=== PATIENT | female | born 1975 | race American Indian/Alaskan Native ===

== ENCOUNTER 2018-07-04 12:04 | Emergency (ER) | payer SELFPAY ==
[2018-07-04] MEDS ORDERED: TORADOL ONE (12:31)
[2018-07-04] MEDS ORDERED: NACL 0.9% 1000 ML 1,000 ML IV ONE (13:46)
[2018-07-04] MEDS ORDERED: ZOFRAN IV ONE (13:46)
[2018-07-04] MEDS ORDERED: DILAUDID IV ONE (13:46)
[2018-07-04 14:09] LABS: Basophils % (Auto) 0.3 % (0.0-1.8); Eosinophils # (Auto) 0.1 K/mm3 (0.0-0.4); Eosinophils % (Auto) 0.6 % (0.0-4.3); Hematocrit 43.9 % (30.3-42.9); Hemoglobin 15.1 gm/dl (10.1-14.3); Lymphocytes # (Auto) 1.6 K/mm3 (1.2-5.4); Lymphocytes % (Auto) 16.1 % (13.4-35.0); Mean Corpuscular HGB Conc 34 % (30-34); Mean Corpuscular Hemoglobin 33 pg (28-32); Mean Corpuscular Volume 95 fl (79-97); Monocytes # (Auto) 0.6 K/mm3 (0.0-0.8); Monocytes % (Auto) 6.6 % (0.0-7.3); Platelet Count 291 K/mm3 (140-440); Red Blood Count 4.61 M/mm3 (3.65-5.03); Red Cell Distribution Width 12.5 % (13.2-15.2)
[2018-07-04 14:23] LABS: Bilirubin,Urine NEG (Negative); Blood,Urine LG (Negative); Color,Urine Yellow (Yellow); Mucus,Urine 1+ /HPF; RBC,Urine > 182.0 /HPF (0.0-6.0); Urobilinogen,Urine < 2.0 mg/dL (<2.0)
[2018-07-04 14:26] LABS: BUN/Creatinine Ratio 20; Blood Urea Nitrogen 12 mg/dL (7-17); Calcium 9.4 mg/dL (8.4-10.2); Hemolysis Index 14
--- NOTE | 2018-07-04 14:30 | Cat Scan Report ---
CT ABDOMEN PELVIS WITHOUT CONTRAST: HISTORY: Right flank pain. COMPARISON: none. TECHNIQUE: Helical CT in 1.25mm intervals without IV contrast. Sagittal and coronal reconstructions. FINDINGS: Lung bases: Normal. Liver: Normal. Biliary system: Normal. Pancreas: Normal. Spleen: Normal. Kidneys/ureters/bladder: The kidneys are normal size, contour and position. The renal pyramids are hyperdense consistent with nephrocalcinosis. No venkatesh renal or ureteral stones are identified. No hydronephrosis. The bladder is partially empty but unremarkable. Adrenal glands: Normal. Aorta: Normal. Intestines: Normal. Appendix: Not confidently identified. Pelvic viscera: Hysterectomy changes are suspected. I believe I see the ovaries which are unremarkable. Ascites: None. Adenopathy: None. Musculoskeletal: Normal. IMPRESSION: No acute process is identified. Nephrocalcinosis of both kidneys.
--- NOTE | 2018-07-04 15:25 | Emergency Department Report ---
ED Abdominal Pain HPI - General Chief Complaint: Urogenital-Female Stated Complaint: KIDNEY STONES/BLOOD IN URINE Time Seen by Provider: 07/04/18 13:43 Source: patient Mode of arrival: Ambulatory Limitations: No Limitations - History of Present Illness Initial Comments: Patient is a 42-year-old female who is presenting with right flank pain. Patient states pain started earlier today. Patient's had a pressure sensation that she needs to go to the bathroom as well as some dysuria. Patient states his nausea with no vomiting. Patient denies any fevers or chills diarrhea at this time. Patient states pain as a 10 out of 10. Patient has had kidney stones in the past. Severity scale (0 -10): 10 - Related Data Previous Rx's Medication Instructions Recorded Last Taken Type Ciprofloxacin HCl [Cipro] 500 mg PO BID #14 tablet 07/04/18 Unknown Rx Ibuprofen [Motrin] 800 mg PO Q8HR PRN #20 tablet 07/04/18 Unknown Rx Ondansetron [Zofran Odt] 4 mg PO Q8HR PRN #10 tab.rapdis 07/04/18 Unknown Rx Tamsulosin HCl [Flomax] 0.4 mg PO QHS #7 cap.er.24h 07/04/18 Unknown Rx oxyCODONE /ACETAMINOPHEN [Percocet 1 tab PO Q6HR PRN #15 tablet 07/04/18 Unknown Rx 5/325] Allergies Allergy/AdvReac Type Severity Reaction Status Date / Time tramadol AdvReac Shortness Verified 07/04/18 12:23 of Breath ED Review of Systems ROS: Stated complaint: KIDNEY STONES/BLOOD IN URINE Other details as noted in HPI Comment: All other systems reviewed and negative ED Past Medical Hx - Past Medical History Previous Medical History?: No - Surgical History Additional Surgical History: HYSTERRECTOMY 2011. RIGHT OVERY REMOVED 2014 - Social History Smoking Status: Never Smoker Substance Use Type: None - Medications Home Medications: Home Medications Medication Instructions Recorded Confirmed Last Taken Type Ciprofloxacin HCl [Cipro] 500 mg PO BID #14 tablet 07/04/18 Unknown Rx Ibuprofen [Motrin] 800 mg PO Q8HR PRN #20 tablet 07/04/18 Unknown Rx Ondansetron [Zofran Odt] 4 mg PO Q8HR PRN #10 tab.rapdis 07/04/18 Unknown Rx Tamsulosin HCl [Flomax] 0.4 mg PO QHS #7 cap.er.24h 07/04/18 Unknown Rx oxyCODONE /ACETAMINOPHEN [Percocet 1 tab PO Q6HR PRN #15 tablet 07/04/18 Unknown Rx 5/325] ED Physical Exam - General Limitations: No Limitations General appearance: alert, in distress - Head Head exam: Present: atraumatic, normocephalic - Eye Eye exam: Present: normal appearance - ENT ENT exam: Present: mucous membranes moist - Neck Neck exam: Present: normal inspection - Respiratory Respiratory exam: Present: normal lung sounds bilaterally. Absent: respiratory distress, wheezes, rales, rhonchi - Cardiovascular Cardiovascular Exam: Present: regular rate, normal rhythm. Absent: systolic murmur, diastolic murmur, rubs, gallop - GI/Abdominal GI/Abdominal exam: Present: soft, normal bowel sounds. Absent: distended, guarding, rebound, rigid - Extremities Exam Extremities exam: Present: normal inspection - Back Exam Back exam: Present: normal inspection, CVA tenderness (R) - Neurological Exam Neurological exam: Present: alert, oriented X3 - Psychiatric Psychiatric exam: Present: normal affect, normal mood - Skin Skin exam: Present: warm, dry, intact, normal color. Absent: rash ED Course Vital Signs 07/04/18 12:21 Temperature 98.5 F Pulse Rate 96 H Respiratory 20 Rate Blood Pressure 129/81 O2 Sat by Pulse 98 Oximetry ED Medical Decision Making - Lab Data Result diagrams: 07/04/18 13:54 07/04/18 13:54 Lab Results 07/04/18 07/04/18 07/04/18 Range/Units 13:54 13:54 Unknown WBC 9.7 (4.5-11.0) K/mm3 RBC 4.61 (3.65-5.03) M/mm3 Hgb 15.1 H (10.1-14.3) gm/dl Hct 43.9 H (30.3-42.9) % MCV 95 (79-97) fl MCH 33 H (28-32) pg MCHC 34 (30-34) % RDW 12.5 L (13.2-15.2) % Plt Count 291 (140-440) K/mm3 Lymph % (Auto) 16.1 (13.4-35.0) % [place] % (Auto) 6.6 (0.0-7.3) % Eos % (Auto) 0.6 (0.0-4.3) % Baso % (Auto) 0.3 (0.0-1.8) % Lymph # 1.6 (1.2-5.4) K/mm3 Bracken # 0.6 (0.0-0.8) K/mm3 Eos # 0.1 (0.0-0.4) K/mm3 Baso # 0.0 (0.0-0.1) K/mm3 Seg Neutrophils % 76.4 H (40.0-70.0) % Seg Neutrophils # 7.4 (1.8-7.7) K/mm3 Sodium 138 (137-145) mmol/L Potassium 4.8 (3.6-5.0) mmol/L Chloride 102.5 (98-107) mmol/L Carbon Dioxide 26 (22-30) mmol/L Anion Gap 14 mmol/L BUN 12 (7-17) mg/dL Creatinine 0.6 L (0.7-1.2) mg/dL Estimated GFR > 60 ml/min BUN/Creatinine Ratio 20 % Glucose 86 (65-100) mg/dL Calcium 9.4 (8.4-10.2) mg/dL Urine Color Yellow (Yellow) Urine Turbidity Clear (Clear) Urine pH 6.0 (5.0-7.0) Ur Specific [place] 1.026 (1.003-1.030) Urine Protein 30 mg/dl (Negative) mg/dL Urine Glucose (UA) Neg (Negative) mg/dL Urine Ketones Neg (Negative) mg/dL Urine Blood Lg (Negative) Urine Nitrite Neg (Negative) Urine Bilirubin Neg (Negative) Urine Urobilinogen < 2.0 (<2.0) mg/dL Ur Leukocyte Esterase Neg (Negative) Urine WBC (Auto) 55.0 H (0.0-6.0) /HPF Urine RBC (Auto) > 182.0 (0.0-6.0) /HPF U Epithel Cells (Auto) 4.0 (0-13.0) /HPF Urine Mucus 1+ /HPF - Radiology Data Patient: JUAN PABLO BRAMBILA MR#: [id number] : 1975 Acct:[id number] Age/Sex: 42 / F ADM Date: 07/04/18 Loc: ED Attending Dr: Ordering Physician: DAVE TILLMAN MD Date of Service: 07/04/18 Procedure(s): CT abdomen pelvis wo con Accession Number(s): [id number] cc: DAVE TILLMAN MD CT ABDOMEN PELVIS WITHOUT CONTRAST: HISTORY: Right flank pain. COMPARISON: none. TECHNIQUE: Helical CT in 1.25mm intervals without IV contrast. Sagittal and coronal reconstructions. FINDINGS: Lung bases: Normal. Liver: Normal. Biliary system: Normal. Pancreas: Normal. Spleen: Normal. Kidneys/ureters/bladder: The kidneys are normal size, contour and position. The renal pyramids are hyperdense consistent with nephrocalcinosis. No venkatesh renal or ureteral stones are identified. No hydronephrosis. The bladder is partially empty but unremarkable. Adrenal glands: Normal. Aorta: Normal. Intestines: Normal. Appendix: Not confidently identified. Pelvic viscera: Hysterectomy changes are suspected. I believe I see the ovaries which are unremarkable. Ascites: None. Adenopathy: None. Musculoskeletal: Normal. IMPRESSION: No acute process is identified. Nephrocalcinosis of both kidneys. Transcribed By: TTR Dictated By: DOMINIQUE GRANADOS JR, MD Electronically Authenticated By: DOMINIQUE GRANADOS JR, MD Signed Date/Time: 07/04/18 1424 - Medical Decision Making Patient's pain is slightly improved here in the emergency department. Patient will be placed on antibiotics for her urinary tract infection. Patient most likely did pass a small kidney stone but is not having an obstructive uropathy at this time Critical care attestation.: If time is entered above; I have spent that time in minutes in the direct care of this critically ill patient, excluding procedure time. ED Disposition Clinical Impression: Kidney stone Hematuria Qualifiers: Hematuria type: unspecified type Qualified Code(s): R31.9 - Hematuria, unspecified Acute cystitis Qualifiers: Hematuria presence: with hematuria Qualified Code(s): N30.01 - Acute cystitis with hematuria Disposition: TO HOME OR SELFCARE Is pt being admited?: No Does the pt Need Aspirin: No Condition: Stable Instructions: Urinary Tract Infection in Women (ED), Kidney Stones (ED) Referrals: RODOLFO ATKINSON MD [Staff Physician] - 3-5 Days
[2018-07-04 15:53] VITALS: BP 124/80
== END 2018-07-04 15:52 | disposition home or self-care (01) ==
LOC: ED 12:04
DX: N30.01 Acute cystitis with hematuria (principal); N20.0 Calculus of kidney; Z88.6 Allergy status to analgesic agent
CPT/HCPCS: 36415; 74176; 80048; 81001; 85025; 96374; 96375; 99284; J1170; J1885; J2405; J7030

== ENCOUNTER 2019-02-17 10:58 | Emergency (ER) | payer SELFPAY ==
--- NOTE | 2019-02-17 11:27 | Emergency Department Report ---
Chief Complaint: Abdominal Pain Stated Complaint: KIDNEY STONE/BLOOD IN URINE Time Seen by Provider: 02/17/19 11:09 - HPI History of Present Illness: This is a 43 y.o. female that presents with suspected kidney stones. - ROS Review of Systems: right flank pain, dysuria, pelvic pain, hematuria, & nausea - Exam Vital Signs: Vital Signs 02/17/19 11:05 Temperature 97.8 F Pulse Rate 113 H Respiratory 20 Rate Blood Pressure 144/106 O2 Sat by Pulse 98 Oximetry MSE screening note: Focused history and physical exam performed. Due to findings the following was ordered: labs and CT of abdomen and pelvis ED Disposition for MSE Condition: Stable Instructions: Abdominal Pain (ED)
--- NOTE | 2019-02-17 11:44 | Emergency Department Report ---
ED General Adult HPI - General Chief complaint: Abdominal Pain Stated complaint: KIDNEY STONE/BLOOD IN URINE Time Seen by Provider: 02/17/19 11:09 Source: patient, RN notes reviewed, old records reviewed Mode of arrival: Ambulatory Limitations: No Limitations - History of Present Illness Initial comments: This is a 43-year-old female. The patient is not known to this provider previously. The patient has a history of possible kidney stones. The patient has not had this diagnosis formally established in this hospital. In 2018, she presents flank pain and hematuria, and was treated presumptively for symptomatic kidney stone, although noncontrast CT scan of the abdomen and pelvis demonstrated no stones within the collecting system. Today, the patient presents to the emergency room with a complaint of nontraumatic right CVA back pain, sharp, aching, associated with hematuria, and intermittent dysuria. The symptoms are intermittent since yesterday, and associated with suprapubic discomfort, with mild nausea, no vomiting, no fevers or chills, no hematemesis or bright red blood per rectum. Patient reports no recent travel to the [place], or to [place], denies exposure to blue aniline dyes, but does admit intermittent tobacco consumption. Has not followed up with a urologist. In the emergency room, patient treated with hydromorphone, ketorolac, IV fluids, which improved her symptoms. -: Gradual, hour(s) Location: back Radiation: periumbillical Severity scale (0 -10): 10 Consistency: intermittent Improves with: medication, rest Worsens with: movement - Related Data Previous Rx's Medication Instructions Recorded Last Taken Type Ciprofloxacin HCl [Cipro] 500 mg PO BID #14 tablet 07/04/18 Unknown Rx Ibuprofen [Motrin] 800 mg PO Q8HR PRN #20 tablet 07/04/18 Unknown Rx Ondansetron [Zofran Odt] 4 mg PO Q8HR PRN #10 tab.rapdis 07/04/18 Unknown Rx Tamsulosin HCl [Flomax] 0.4 mg PO QHS #7 cap.er.24h 07/04/18 Unknown Rx oxyCODONE /ACETAMINOPHEN [Percocet 1 tab PO Q6HR PRN #15 tablet 07/04/18 Unknown Rx 5/325] Acetaminophen [Tylenol Arthritis] 650 mg PO Q6HR PRN #30 tablet.er 02/17/19 Unknown Rx Ketorolac [Toradol] 10 mg PO Q6H PRN #20 tablet 02/17/19 Unknown Rx Metoclopramide [Reglan] 10 mg PO QID PRN #30 tablet 02/17/19 Unknown Rx levoFLOXacin [Levaquin] 750 mg PO QDAY #10 tablet 02/17/19 Unknown Rx oxyCODONE [Roxicodone] 5 mg PO Q6HR PRN #15 tablet 02/17/19 Unknown Rx Allergies Allergy/AdvReac Type Severity Reaction Status Date / Time tramadol AdvReac Shortness Verified 07/04/18 12:23 of Breath ED Review of Systems ROS: Stated complaint: KIDNEY STONE/BLOOD IN URINE Other details as noted in HPI Constitutional: denies: fever, malaise Eyes: denies: vision change ENT: denies: epistaxis Respiratory: denies: cough Cardiovascular: denies: chest pain Genitourinary: dysuria, hematuria Musculoskeletal: back pain Skin: denies: lesions Neurological: denies: weakness Psychiatric: anxiety ED Past Medical Hx - Past Medical History Previous Medical History?: No - Surgical History Past Surgical History?: Yes Additional Surgical History: HYSTERRECTOMY 2011. RIGHT OVERY REMOVED 2014 - Social History Smoking Status: Never Smoker - Medications Home Medications: Home Medications Medication Instructions Recorded Confirmed Last Taken Type Ciprofloxacin HCl [Cipro] 500 mg PO BID #14 tablet 07/04/18 Unknown Rx Ibuprofen [Motrin] 800 mg PO Q8HR PRN #20 tablet 07/04/18 Unknown Rx Ondansetron [Zofran Odt] 4 mg PO Q8HR PRN #10 tab.rapdis 07/04/18 Unknown Rx Tamsulosin HCl [Flomax] 0.4 mg PO QHS #7 cap.er.24h 07/04/18 Unknown Rx oxyCODONE /ACETAMINOPHEN [Percocet 1 tab PO Q6HR PRN #15 tablet 07/04/18 Unknown Rx 5/325] Acetaminophen [Tylenol Arthritis] 650 mg PO Q6HR PRN #30 tablet.er 02/17/19 Unknown Rx Ketorolac [Toradol] 10 mg PO Q6H PRN #20 tablet 02/17/19 Unknown Rx Metoclopramide [Reglan] 10 mg PO QID PRN #30 tablet 02/17/19 Unknown Rx levoFLOXacin [Levaquin] 750 mg PO QDAY #10 tablet 02/17/19 Unknown Rx oxyCODONE [Roxicodone] 5 mg PO Q6HR PRN #15 tablet 02/17/19 Unknown Rx ED Physical Exam - General Limitations: No Limitations General appearance: alert, anxious, in distress - Head Head exam: Present: atraumatic, normocephalic - Eye Eye exam: Present: normal appearance, EOMI. Absent: nystagmus - ENT ENT exam: Present: normal exam, normal orophraynx, mucous membranes moist, normal external ear exam - Neck Neck exam: Present: normal inspection, full ROM. Absent: tenderness, meningismus - Respiratory Respiratory exam: Present: normal lung sounds bilaterally. Absent: respiratory distress - Cardiovascular Cardiovascular Exam: Present: normal rhythm, tachycardia, normal heart sounds. Absent: systolic murmur, diastolic murmur, rubs, gallop - GI/Abdominal GI/Abdominal exam: Present: soft, tenderness, other (there is suprapubic tenderness. There is no right lower quadrant tenderness. There is no rebound, guarding or peritoneal signs.). Absent: distended, guarding, rebound, rigid, pulsatile mass - Extremities Exam Extremities exam: Present: normal inspection, full ROM, other (2+ pulses noted in the bilateral upper, lower extremities. Compartments soft. No long bony tenderness. The pelvis is stable.). Absent: pedal edema, joint swelling, calf tenderness - Back Exam Back exam: Present: normal inspection, full ROM, tenderness, CVA tenderness (R). Absent: CVA tenderness (L), muscle spasm, paraspinal tenderness, vertebral tenderness - Neurological Exam Neurological exam: Present: alert, oriented X3, CN II-XII intact, normal gait, other (Extraocular movements intact. Tongue midline. No facial droop. Facial sensation intact to light touch in the V1, V2, V3 distribution bilaterally. 5 and 5 strength in 4 extremities.. Sensation is intact to light touch in 4 extremities.). Absent: motor sensory deficit - Psychiatric Psychiatric exam: Present: anxious - Skin Skin exam: Present: warm, dry, intact, normal color. 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 Reevaluation #3: 02/17/19 14:50 Tachycardia resolved ED Medical Decision Making - Lab Data Result diagrams: 02/17/19 11:46 02/17/19 11:46 Vital Signs 02/17/19 11:05 Temperature 97.8 F Pulse Rate 113 H Respiratory 20 Rate Blood Pressure 144/106 O2 Sat by Pulse 98 Oximetry Lab Results 02/17/19 Range/Units 11:40 Urine Color Red (Yellow) Urine Turbidity Cloudy (Clear) Urine pH 5.0 (5.0-7.0) Ur Specific [place] 1.031 H (1.003-1.030) Urine Protein 100 mg/dl (Negative) mg/dL Urine Glucose (UA) Neg (Negative) mg/dL Urine Ketones Neg (Negative) mg/dL Urine Blood Lg (Negative) Urine Nitrite Neg (Negative) Urine Bilirubin Neg (Negative) Urine Urobilinogen < 2.0 (<2.0) mg/dL Ur Leukocyte Esterase Neg (Negative) Urine WBC (Auto) 1.0 (0.0-6.0) /HPF Urine RBC (Auto) > 182.0 (0.0-6.0) /HPF U Epithel Cells (Auto) 12.0 (0-13.0) /HPF Urine Bacteria (Auto) 2+ (Negative) /HPF Urine Mucus 2+ /HPF Urine HCG, Qual Negative (Negative) - Radiology Data Radiology results: report reviewed, image reviewed Referring Physician: ERNESTINE HARRISON Patient Name: JUAN PABLO BRAMBILA Date of : 1975 Sex: Female Report Date: 2019-02-17 Report Status: Finalized [address] [address] Cat Scan Report Signed Patient: JUAN PABLO BRAMBILA MR#: [id number] : 1975 Acct:[id number] Age/Sex: 43 / F ADM Date: 02/17/19 Loc: ED Attending Dr: Ordering Physician: ERNESTINE HARRISON MD Date of Service: 02/17/19 Procedure(s): CT abdomen pelvis wo con Accession Number(s): [id number] cc: ERNESTINE HARRISON MD CT ABDOMEN PELVIS WITHOUT CONTRAST: HISTORY: Right flank pain. COMPARISON: 07/04/13. TECHNIQUE: Helical CT in 1.25mm intervals without IV contrast. Sagittal and coronal reconstructions. FINDINGS: Lung bases: Normal. Liver: Normal. Bi liary system: Normal. Pancreas: Normal. Spleen: Normal. Kidneys/ureters/bladder: Mild nephrocalcinosis in both kidneys is again identified. No evidence for nephrolithiasis, ureteral stones or hydronephrosis. The bladder is partially empty but unremarkable. Adrenal glands: Normal. Aorta: Normal. Intestines: Normal. Appendix: Appendectomy changes are suspected. Pelvic viscera: Hysterectomy changes. Ascites: None. Adenopathy: None. Musculoskeletal: Normal. IMPRESSION: No acute process is identified in the abdomen or pelvis. Mild nephrocalcinosis in both kidneys. No change since 07/04/18. Transcribed By: TTR Dictated By: DOMINIQUE GRANADOS JR, MD Electronically Authenticated By: DOMINIQUE GRANADOS JR, MD Signed Date/Time: 02/17/19 1212 DD/ 1209 TD/TT: 02/17/[address] Print Report Referring Physician: DAVE TILLMAN Patient Name: JUAN PABLO BRAMBILA Date of : 1975 Sex: Female Report Date: 2018-07-04 Report Status: Finalized Findings [address] [place] [address] Cat Scan Report Signed Patient: JUAN PABLO BRAMBILA MR#: [id number] : 1975 Acct:[id number] Age/Sex: 42 / F ADM Date: 07/04/18 Loc: ED Attending Dr: Ordering Physician: DAVE TILLMAN MD Date of Service: 07/04/18 Procedure(s): CT abdomen pelvis wo con Accession Number(s): [id number] cc: DAVE TILLMAN MD CT ABDOMEN PELVIS WITHOUT CONTRAST: HISTORY: Right flank pain. COMPARISON: none. TECHNIQUE: Helical CT in 1.25mm intervals without IV contrast. Sagittal and coronal reconstructions. FINDINGS: Lung bases: Normal. Liver: Normal. Biliary system: Normal. Pancreas: Normal. Spleen: Normal. Kidneys/ureters/bladder: The kidneys are normal size, contour and position. The renal pyramids are hyperdense consistent with nephrocalcinosis. No venkatesh renal or ureteral stones are identified. No hydronephrosis. The bladder is partially empty but unremarkable. Adrenal glands: Normal. Aorta: Normal. Intestines: Normal. Appendix: Not confidently identified. Pelvic viscera: Hysterectomy changes are suspected. I believe I see the ovaries which are unremarkable. Ascites: None. Adenopathy: No ne. Musculoskeletal: Normal. IMPRESSION: No acute process is identified. Nephrocalcinosis of both kidneys. Transcribed By: TTR Dictated By: DOMINIQUE GRANADOS JR, MD Electronically Authenticated By: DOMINIQUE GRANADOS JR, MD Signed Date/Time: 07/04/18 1424 - Medical Decision Making Differential diagnosis, including but not limited to: Renal colic, pyelo nephritis, genitourinary malignancy, Assessment and plan: 43-year-old female with recurrent flank pain, hematuria, and dysuria. Tachycardia resolved. Tolerating oral feeds. Urinalysis is reviewed and appreciated, given 2+ bacteriuria, right flank pain, history of dysuria, we will treat empirically for pyelonephritis. Patient suitable for a trial of oral outpatient antibiotics. She is counseled to follow up with outpatient urology to exclude genitourinary malignancy. She verbalized understanding to this. Creatinine kinase not elevated, muscular compartments soft, unlikely to be rhabdomyolysis Critical care attestation.: If time is entered above; I have spent that time in minutes in the direct care of this critically ill patient, excluding procedure time. ED Disposition Clinical Impression: Right flank pain, Hematuria Disposition: - TO HOME OR SELFCARE Is pt being admited?: No Does the pt Need Aspirin: No Condition: Good Instructions: Acute Pyelonephritis (ED), Acute Hematuria (ED) Additional Instructions: Cultures were sent today, and results will be available in the next 3-5 days. Please have a primary care doctor contact the medical records department to obtain culture results. Do not consume alcohol while taking the prescribed medications, and take the pain medication, nausea medication as needed, antibiotics as directed. Follow up with a urology specialist within the next 2- 3 weeks for further evaluation of recurrent blood in urine. Not following up as recommended a resultant undiagnosed tumor, cancer, malignancy. Please return to the emergency room right away with view, worsened or different symptoms. Prescriptions: levoFLOXacin [Levaquin] 750 mg PO QDAY #10 tablet Metoclopramide [Reglan] 10 mg PO QID PRN #30 tablet PRN Reason: Nausea oxyCODONE [Roxicodone] 5 mg PO Q6HR PRN #15 tablet PRN Reason: Pain Ketorolac [Toradol] 10 mg PO Q6H PRN #20 tablet PRN Reason: Pain Acetaminophen [Tylenol Arthritis] 650 mg PO Q6HR PRN #30 tablet.er PRN Reason: Pain Referrals: TYSON GARCIA [Provider Group] - 7-10 days
[2019-02-17] MEDS ORDERED: TORADOL IV ONE (11:49)
[2019-02-17] MEDS ORDERED: DILAUDID IV ONE ×2 (11:49→13:13)
[2019-02-17] MEDS ORDERED: ZOFRAN IV ONE (11:49)
[2019-02-17] MEDS ORDERED: NACL 0.9% 500 ML 500 ML IV ONE (11:49)
[2019-02-17 12:16] LABS: Bacteria,Urine 2+ /HPF (Negative); Bilirubin,Urine NEG (Negative); Blood,Urine LG (Negative); Color,Urine Red (Yellow); Mucus,Urine 2+ /HPF; Urobilinogen,Urine < 2.0 mg/dL (<2.0)
--- NOTE | 2019-02-17 12:16 | Cat Scan Report ---
CT ABDOMEN PELVIS WITHOUT CONTRAST: HISTORY: Right flank pain. COMPARISON: 07/04/13. TECHNIQUE: Helical CT in 1.25mm intervals without IV contrast. Sagittal and coronal reconstructions. FINDINGS: Lung bases: Normal. Liver: Normal. Biliary system: Normal. Pancreas: Normal. Spleen: Normal. Kidneys/ureters/bladder: Mild nephrocalcinosis in both kidneys is again identified. No evidence for nephrolithiasis, ureteral stones or hydronephrosis. The bladder is partially empty but unremarkable. Adrenal glands: Normal. Aorta: Normal. Intestines: Normal. Appendix: Appendectomy changes are suspected. Pelvic viscera: Hysterectomy changes. Ascites: None. Adenopathy: None. Musculoskeletal: Normal. IMPRESSION: No acute process is identified in the abdomen or pelvis. Mild nephrocalcinosis in both kidneys. No change since 07/04/18.
[2019-02-17 12:22] LABS: HCG Qualitative,Urine Negative (Negative); RBC,Urine > 182.0 /HPF (0.0-6.0)
[2019-02-17] MEDS ORDERED: ROCEPHIN/NS 1 GM/50 ML 1 GM/50 ML BAG IV ONE (12:24)
[2019-02-17 12:38] LABS: Hematocrit 44.3 % (30.3-42.9); Mean Corpuscular HGB Conc 34 % (30-34); Mean Corpuscular Volume 98 fl (79-97); Platelet Count 295 K/mm3 (140-440); Red Blood Count 4.55 M/mm3 (3.65-5.03); Red Cell Distribution Width 12.8 % (13.2-15.2)
[2019-02-17 12:41] LABS: BUN/Creatinine Ratio 15; Blood Urea Nitrogen 9 mg/dL (7-17); Calcium 9.5 mg/dL (8.4-10.2); Hemolysis Index 13
[2019-02-17 13:42] VITALS: BP 144/87
[2019-02-17] MEDS ORDERED: PERCOCET 5/325 PO ONE (14:41)
== END 2019-02-17 15:03 | disposition home or self-care (01) ==
LOC: ED 10:58
DX: R10.9 Unspecified abdominal pain (principal); R31.9 Hematuria, unspecified; Z90.710 Acquired absence of both cervix and uterus; Z79.899 Other long term (current) drug therapy; Z88.6 Allergy status to analgesic agent
CPT/HCPCS: 36415; 74176; 80048; 81001; 81025; 82550; 83735; 85027; 96365; 96375; 96376; 99284; J0696; J1170; J1885; J2405; J7040

== ENCOUNTER 2022-08-21 13:41 | Emergency (ER) | payer BC ==
[2022-08-21 16:02] LABS: Hematocrit 40.8 % (30.3-42.9); Hemoglobin 14.1 gm/dl (10.1-14.3); Mean Corpuscular HGB Conc 35 % (30-34); Mean Corpuscular Volume 93 fl (79-97); Platelet Count 258 K/mm3 (140-440); Red Blood Count 4.41 M/mm3 (3.65-5.03); Red Cell Distribution Width 12.6 % (13.2-15.2)
[2022-08-21 16:23] LABS: Alanine Aminotransferase 13 units/L (7-56); Albumin 4.7 g/dL (3.9-5); Blood Urea Nitrogen 16 mg/dL (7-17); Calcium 9.4 mg/dL (8.4-10.2); Hemolysis Index 3
[2022-08-21 16:28] LABS: BUN/Creatinine Ratio 27
[2022-08-21 17:31] LABS: Color,Urine Yellow (Yellow); Ictotest,Urine Negative (Negative)
[2022-08-21 17:35] LABS: Bacteria,Urine 1+ /HPF (Negative); Mucus,Urine 1+ /HPF
[2022-08-21 18:25] LABS: Basophils % (Manual) 0 % (0.0-1.8); Eosinophils % (Manual) 0 % (0.0-4.3); Monocytes % (Manual) 0 % (0.0-7.3); Platelet Estimate Consistent w Auto; RBC Morphology Normal; Total Cells Counted 100
[2022-08-21] MEDS ORDERED: KETOROLAC 30 MG/1 ML INJ IV STA (21:06)
[2022-08-21] MEDS ORDERED: ONDANSETRON 4 MG/2 ML INJ IV STA (21:06)
--- NOTE | 2022-08-21 22:08 | Cat Scan Report ---
CT ABDOMEN AND PELVIS WITH CONTRAST INDICATION / CLINICAL INFORMATION: Right lower quadrant pain. TECHNIQUE: Axial CT images were obtained through the abdomen and pelvis after 80 cc Omnipaque [address] scans at this location are performed using CT dose reduction for ALARA by means of automated e xposure control. COMPARISON: CT abdomen and pelvis without contrast from 02/17/2019. FINDINGS: LOWER CHEST: No significant abnormality. LIVER: No significant abnormality. GALLBLADDER: No significant abnormality. BILE DUCTS: No significant abnormality. PANCREAS: No significant abnormality. SPLEEN: No significant abnormality. ADRENALS: No significant abnormality. RIGHT KIDNEY/URETER: No significant abnormality. LEFT KIDNEY/URETER: No significant abnormality. STOMACH/SMALL BOWEL: No significant abnormality. COLON: No significant abnormality. APPENDIX: The appendix is not clearly seen. No focal acute inflammation is identified along the right lower quadrant to suggest acute appendicitis. PERITONEUM: Trace free fluid is seen along the pelvis. No free air. No fluid collection. LYMPH NODES: No significant adenopathy. VASCULATURE: No significant abnormality. URINARY BLADDER: No significant abnormality. REPRODUCTIVE ORGANS: Prior hysterectomy. There is a complex solid and cystic right ovarian/adnexal ma ss measuring 4.9 x 4.8 cm. No significant left adnexal abnormality. ADDITIONAL FINDINGS: None. BONES: No significant abnormality IMPRESSION: 1. Complex right ovarian/adnexal mass as above could represent primary ovarian malignancy or ovarian torsion. Transvaginal ultrasound would be helpful for further characterization. 2. No other acute findings to explain the patient's right lower quadrant pain. Signer Name: Obdulio Marcos MD Signed: 08/21/2022 10:04 PM Workstation Name: [id number]
[2022-08-21] MEDS ORDERED: MORPHINE 4 MG/1 ML INJ IV STA (23:13)
--- NOTE | 2022-08-22 00:06 | Emergency Department Report ---
ED Abdominal Pain HPI - General Chief Complaint: Abdominal Pain Stated Complaint: ABD PAIN/VOMITTING PUI?: No Time Seen by Provider: 08/21/22 21:05 Source: patient Mode of arrival: Ambulatory Limitations: No Limitations - History of Present Illness MD Complaint: abdominal pain -: Gradual Location: RLQ Radiation: suprapubic, R flank Severity: moderate, severe Severity scale (0 -10): 9 Quality: sharp Consistency: constant Improves With: nothing Worsens With: movement Associated Symptoms: denies other symptoms - Related Data Previous Rx's Medication Instructions Recorded Last Taken Type Ciprofloxacin HCl [Cipro] 500 mg PO BID #14 tablet 07/04/18 Unknown Rx Ibuprofen [Motrin] 800 mg PO Q8HR PRN #20 tablet 07/04/18 Unknown Rx Ondansetron [Zofran Odt] 4 mg PO Q8HR PRN #10 tab.rapdis 07/04/18 Unknown Rx Tamsulosin HCl [Flomax] 0.4 mg PO QHS #7 cap.er.24h 07/04/18 Unknown Rx oxyCODONE /ACETAMINOPHEN [Percocet 1 tab PO Q6HR PRN #15 tablet 07/04/18 Unknown Rx 5/325] Acetaminophen [Tylenol Arthritis] 650 mg PO Q6HR PRN #30 tablet.er 02/17/19 Unknown Rx Metoclopramide [Reglan] 10 mg PO QID PRN #30 tablet 02/17/19 Unknown Rx levoFLOXacin [Levaquin] 750 mg PO QDAY #10 tablet 02/17/19 Unknown Rx oxyCODONE [Roxicodone] 5 mg PO Q6HR PRN #15 tablet 02/17/19 Unknown Rx Ketorolac [Toradol] 10 mg PO Q6H PRN #20 tablet 08/22/22 Unknown Rx Ondansetron [Zofran ODT TAB] 8 mg PO Q8HR #14 tab.rapdis 08/22/22 Unknown Rx Allergies Allergy/AdvReac Type Severity Reaction Status Date / Time tramadol AdvReac Shortness Verified 08/21/22 14:43 of Breath ED Review of Systems ROS: Stated complaint: ABD PAIN/VOMITTING Other details as noted in HPI Comment: All other systems reviewed and negative ED Past Medical Hx - Surgical History Additional Surgical History: HYSTERRECTOMY 2011. RIGHT OVERY REMOVED 2014 - Social History Smoking Status: Never Smoker - Medications Home Medications: Home Medications Medication Instructions Recorded Confirmed Last Taken Type Ciprofloxacin HCl [Cipro] 500 mg PO BID #14 tablet 07/04/18 Unknown Rx Ibuprofen [Motrin] 800 mg PO Q8HR PRN #20 tablet 07/04/18 Unknown Rx Ondansetron [Zofran Odt] 4 mg PO Q8HR PRN #10 tab.rapdis 07/04/18 Unknown Rx Tamsulosin HCl [Flomax] 0.4 mg PO QHS #7 cap.er.24h 07/04/18 Unknown Rx oxyCODONE /ACETAMINOPHEN [Percocet 1 tab PO Q6HR PRN #15 tablet 07/04/18 Unknown Rx 5/325] Acetaminophen [Tylenol Arthritis] 650 mg PO Q6HR PRN #30 tablet.er 02/17/19 Unknown Rx Metoclopramide [Reglan] 10 mg PO QID PRN #30 tablet 02/17/19 Unknown Rx levoFLOXacin [Levaquin] 750 mg PO QDAY #10 tablet 02/17/19 Unknown Rx oxyCODONE [Roxicodone] 5 mg PO Q6HR PRN #15 tablet 02/17/19 Unknown Rx Ketorolac [Toradol] 10 mg PO Q6H PRN #20 tablet 08/22/22 Unknown Rx Ondansetron [Zofran ODT TAB] 8 mg PO Q8HR #14 tab.rapdis 08/22/22 Unknown Rx ED Physical Exam - General Limitations: No Limitations General appearance: alert, in no apparent distress - Head Head exam: Present: atraumatic, normocephalic - Eye Eye exam: Present: normal appearance, PERRL, EOMI Pupils: Present: normal accommodation - ENT ENT exam: Present: normal exam, mucous membranes moist - Neck Neck exam: Present: normal inspection, full ROM - Respiratory Respiratory exam: Present: normal lung sounds bilaterally. Absent: respiratory distress - Cardiovascular Cardiovascular Exam: Present: regular rate, normal rhythm. Absent: systolic murmur, diastolic murmur, rubs, gallop - GI/Abdominal GI/Abdominal exam: Present: soft, tenderness (Right lower quadrant with palpation), normal bowel sounds. Absent: organomegaly, mass - Extremities Exam Extremities exam: Present: normal inspection - Back Exam Back exam: Present: normal inspection - Neurological Exam Neurological exam: Present: alert, oriented X3, CN II-XII intact, normal gait - Psychiatric Psychiatric exam: Present: normal affect, normal mood - Skin Skin exam: Present: warm, dry, intact, normal color. Absent: rash ED Course Vital Signs 08/21/22 14:41 Temperature 98.3 F Pulse Rate 116 H Respiratory 14 Rate Blood Pressure 140/100 [Left] O2 Sat by Pulse 99 Oximetry ED Medical Decision Making - Lab Data Result diagrams: 08/21/22 15:26 08/21/22 15:26 - Radiology Data Radiology results: image reviewed [facility] [address] [place] [address] Cat Scan Report Signed Patient: JUAN PABLO BRAMBILA MR#: [id number] 1 : 1975 Acct:[id number] Age/Sex: 47 / F ADM Date: 08/21/22 Loc: ED Attending Dr: Ordering Physician: TYSON ALLEN Date of Service: 08/21/22 Procedure(s): CT abdomen pelvis w con Accession Number(s): [id number] cc: TYSON ALLEN CT ABDOMEN AND PELVIS WITH CONTRAST INDICATION / CLINICAL INFORMATION: Right lower quadrant pain. TECHNIQUE: Axial CT images were obtained through the abdomen and pelvis after 80 cc Omnipaque [address] scans at this location are performed using CT dose reduction for ALARA by means of automated exposure control. COMPARISON: CT abdomen and pelvis without contrast from 02/17/2019. FINDINGS: LOWER CHEST: No significant abnormality. LIVER: No significant abnormality. GALLBLADDER: No significant abnormality. BILE DUCTS: No significant abnormality. PANCREAS: No significant abnormality. SPLEEN: No significant abnormality. ADRENALS: No significant abnormality. RIGHT KIDNEY/URETER: No significant abnormality. LEFT KIDNEY/URETER: No significant abnormality. STOMACH/SMALL BOWEL: No significant abnormality. COLON: No significant abnormality. APPENDIX: The appendix is not clearly seen. No focal acute inflammation is identified along the right lower quadrant to suggest acute appendicitis. PERITONEUM: Trace free fluid is seen along the pelvis. No free air. No fluid collection. LYMPH NODES: No significant adenopathy. VASCULATURE: No significant abnormality. URINARY BLADDER: No significant abnormality. REPRODUCTIVE ORGANS: Prior hysterectomy. There is a complex solid and cystic right ovarian/adnexal mass measuring 4.9 x 4.8 cm. No significant left adnexal abnormality. ADDITIONAL FINDINGS: None. BONES: No significant abnormality IMPRESSION: 1. Complex right ovarian/adnexal mass as above could represent primary ovarian malignancy or ovarian torsion. Transvaginal ultrasound would be helpful for further characterization. 2. No other acute findings to explain the patient's right lower quadrant pain. Signer Name: Obdulio Marcos MD Signed: 08/21/2022 10:04 PM Workstation Name: [id number] Transcribed By: [place] Dictated By: Obdulio Marcos MD Electronically Authenticated By: Obdulio Marcos MD Signed Date/Time: 08/21/222 [facility] [address] [place] [id number] Ultrasound Report Signed Patient: JUAN PABLO BRAMBILA MR#: [id number] 1 : 1975 Acct:[id number] Age/Sex: 47 / F ADM Date: 08/21/22 Loc: ED Attending Dr: Ordering Physician: TYSON ALLEN Date of Service: 08/21/22 Procedure(s): US pelvic complete Accession Number(s): [id number] cc: TYSON ALLEN ULTRASOUND PELVIS INDICATION / CLINICAL INFORMATION: right adnexa pain. Abnormal finding on CT abdomen/pelvis. TECHNIQUE: Transabdominal. Duplex Color Doppler used: Yes. COMPARISON: CT abdomen/pelvis 08/21/2022 FINDINGS: UTERUS: Surgically absent. RIGHT ADNEXA: Right ovary is visualized. Technologist measured the right ovary at 3.8 x 2.4 x 3.3 cm. A small postoperative a torus cyst is identified within the right ovary measuring 1.4 cm. Normal blood flow is seen within the right ovary. This is discordant with right adnexal mass noted on CT. I would recommend the patient undergo transvaginal imaging to better evaluate the right adnexa. LEFT ADNEXA: No significant ovarian cyst or mass. Normal color Doppler blood flow. FREE FLUID: None. ADDITIONAL FINDINGS: None. IMPRESSION: 1. Grossly normal appearance of the right ovary. No sonographic finding of abnormal right adnexal mass. No evidence of torsion. Although the right ovary appeared grossly normal sonographically, the sonographic appearance is discordant with the complex adnexal mass seen on CT scan. Therefore, further evaluation with transvaginal ultrasound is suggested. 2. Normal appearance of the left ovary. Signer Name: Maria G Culver MD Signed: 08/22/2022 1:28 AM Workstation Name: [id number] Transcribed By: Dictated By: Maria G Culver MD Electronically Authenticated By: Maria G Culver MD Signed Date/Time: 08/22/22127 DD/ 2 TD/TT: DD/ 57 TD/TT: Print Cancel - Medical Decision Making 47-year-old female apparently history of previous ovarian cyst to the left side presents emerged part complaining of right lower quadrant adnexal pain of a sharp and throbbing more constant etiology/worsening since the onset. She was treated accordingly with multiple rounds of pain medication including Toradol and morphine which did help to mitigate her pain for about 2 to 3 hours this had to be followed up with oral medication and another round of IV analgesics for for good control there is no signs of infection with laboratory findings and CT scan did show an ovarian mass which I ultrasound was obtained. Mild treatment delay due to the ultrasound which was originally ordered complete and transvaginal transvaginal was prematurely canceled and the radiologist later recommended that it be revisited. We did locate the on call pharmacy technician and we and we reiterate the need for the transvaginal which was completed and a findings were updated showing a complex cystic mass to correlate with the findings on CT scan. Patient was treated and discharged home. Critical care attestation.: If time is entered above; I have spent that time in minutes in the direct care of this critically ill patient, excluding procedure time. ED Disposition Clinical Impression: Ovarian cyst Disposition: 01 HOME / SELF CARE / HOMELESS Is pt being admited?: No Does the pt Need Aspirin: No Condition: Stable Instructions: Ovarian Cyst, [id number], Ovarian Cyst, Abdominal Pain (ED) Prescriptions: Ketorolac [Toradol] 10 mg PO Q6H PRN #20 tablet PRN Reason: Pain Ondansetron [Zofran ODT TAB] 8 mg PO Q8HR #14 tab.rapdis Referrals: KINSEY MARRUFO MD [Primary Care Provider] - 3-5 Days YASH GRAY MD [Staff Physician] - 3-5 Days
--- NOTE | 2022-08-22 01:33 | Ultrasound Report ---
ULTRASOUND PELVIS INDICATION / CLINICAL INFORMATION: right adnexa pain. Abnormal finding on CT abdomen/pelvis. TECHNIQUE: Transabdominal. Duplex Color Doppler used: Yes. COMPARISON: CT abdomen/pelvis 08/21/2022 FINDINGS: UTERUS: Surgically absent. RIGHT ADNEXA: Right ovary is visualized. Technologist measured the right ovary at 3.8 x 2.4 x 3.3 cm. A small postoperative a torus cyst is identified within the right ovary measuring 1.4 cm. Normal blo od flow is seen within the right ovary. This is discordant with right adnexal mass noted on CT. I aparna dickerson recommend the patient undergo transvaginal imaging to better evaluate the right adnexa. LEFT ADNEXA: No significant ovarian cyst or mass. Normal color Doppler blood flow. FREE FLUID: None. ADDITIONAL FINDINGS: None. IMPRESSION: 1. Grossly normal appearance of the right ovary. No sonographic finding of abnormal right adnexal mas s. No evidence of torsion. Although the right ovary appeared grossly normal sonographically, the sono graphic appearance is discordant with the complex adnexal mass seen on CT scan. Therefore, further ev aluation with transvaginal ultrasound is suggested. 2. Normal appearance of the left ovary. Signer Name: Maria G Culver MD Signed: 08/22/2022 1:28 AM Workstation Name: [id number]
[2022-08-22] MEDS ORDERED: HYDROcodone/ACETAMINOPHEN 5-325 MG TAB PO ONE (03:22)
[2022-08-22] MEDS ORDERED: IBUPROFEN 400 MG TAB PO ONE (03:22)
[2022-08-22] MEDS ORDERED: HYDROmorphone 1 MG/1 ML INJ IV ONE (04:38)
[2022-08-22] MEDS ORDERED: ONDANSETRON 4 MG/2 ML INJ IV ONE (04:39)
[2022-08-22] MEDS ORDERED: ONDANSETRON 4 MG/2 ML INJ ONE (04:40)
--- NOTE | 2022-08-22 04:57 | Ultrasound Report ---
ULTRASOUND PELVIS INDICATION / CLINICAL INFORMATION: pain. Abnormal pelvic CT TECHNIQUE: . Transvaginal Duplex Color Doppler used: Yes. COMPARISON: CT abdomen/pelvis and pelvic ultrasound, transabdominal only, 08/21/2022 FINDINGS: UTERUS: Surgically absent. RIGHT ADNEXA: Right ovary is visualized. Right ovary measures 4.3 x 3.6 x 2.1 cm. There is a 1.4 cm s imple cyst within the right ovary and a complex cyst measuring 2.2 cm there is small amount of surrou nding free fluid. Normal color Doppler blood flow. LEFT ADNEXA: Left ovary was previously evaluated transabdominally and found to be normal. FREE FLUID: Small amount of free fluid noted in the right adnexa ADDITIONAL FINDINGS: None. IMPRESSION: 1. The right ovary contains 2 cysts one of which is complicated measuring 2.2 cm. There is free fluid surrounding the right ovary. The appearance and size is more concordant with mass seen on CT scan. T he appearance would suggest recent rupture of ovarian cyst. Signer Name: Maria G Culver MD Signed: 08/22/2022 4:53 AM Workstation Name: [id number]
[2022-08-22 06:35] VITALS: BP 133/77
== END 2022-08-22 06:25 | disposition home or self-care (01) ==
LOC: ED 13:41
DX: N83.209 Unspecified ovarian cyst, unspecified side (principal); Z88.8 Allergy status to other drugs, medicaments and biological substances
CPT/HCPCS: 36415; 74177; 76830; 76856; 80053; 81001; 85007; 85025; 87086; 96374; 96375; 96376; 99284; J1170; J1885; J2270; J2405; Q9967